=== PATIENT | female | born 1995 | race Caucasian/White ===

== ENCOUNTER 2019-08-28 11:53 | Emergency (ER) | payer OTHER ==
[2019-08-28 12:08] VITALS: TEMP 98.5
[2019-08-28] MEDS ORDERED: SODIUM CHLORIDE 0.9% 500 ML 500 ML IV STA (12:49)
--- NOTE | 2019-08-28 12:53 | ED ---
General Adult HPI - General Chief complaint: Abdominal Pain Stated complaint: Side pain-6wks PG Time Seen by Provider: 08/28/19 12:13 Source: family, RN notes reviewed Mode of arrival: ambulatory Limitations: no limitations - History of Present Illness Initial comments: 23-year-old female currently 6 weeks presents to the emergency department for a chief complaint of left lower quadrant pain last week. Patient states that as a shift in left lower quadrant pain and then she found out she was . States she wants to make sure nothing was wrong with the baby is active causes pain. States that the pain has resolved in the meantime. States she hasn't had pain for several days. Denies any vaginal bleeding. States she is about 6 weeks with LMP of 07/17/2019. Patient does not have an OB. Patient is taking vitamins. Patient has no other complaints at this time including shortness of breath, chest pain,nausea or vomiting, headache, or visual changes. - Related Data Allergies Allergy/AdvReac Type Severity Reaction Status Date / Time No Known Allergies Allergy Verified 08/28/19 12:08 Review of Systems ROS Statement: Those systems with pertinent positive or pertinent negative responses have been documented in the HPI. ROS Other: All systems not noted in ROS Statement are negative. Past Medical History Past Medical History: Asthma History of Any Multi-Drug Resistant Organisms: None Reported Past Surgical History: No Surgical Hx Reported Past Psychological History: No Psychological Hx Reported Smoking Status: Former smoker Past Alcohol Use History: None Reported Past Drug Use History: Marijuana General Exam Limitations: no limitations General appearance: alert, in no apparent distress Head exam: Present: atraumatic, normocephalic, normal inspection Eye exam: Present: normal appearance ENT exam: Present: normal exam, mucous membranes moist Neck exam: Present: normal inspection, full ROM. Absent: tenderness, meningismus, lymphadenopathy Respiratory exam: Present: normal lung sounds bilaterally. Absent: respiratory distress, wheezes, rales, rhonchi, stridor Cardiovascular Exam: Present: regular rate, normal rhythm, normal heart sounds. Absent: systolic murmur, diastolic murmur, rubs, gallop, clicks GI/Abdominal exam: Present: soft, normal bowel sounds. Absent: distended, tenderness (No tenderness including in the lower quadrant.), guarding, rebound, rigid Course Vital Signs 08/28/19 12:05 Temperature 98.5 F Pulse Rate 86 Respiratory 20 Rate Blood Pressure 111/72 O2 Sat by Pulse 99 Oximetry Medical Decision Making - Medical Decision Making Patient has not had any pain in the past few days. No left lower quadrant tenderness. Vitals are stable. CBC and CMP are unremarkable. Urinalysis does show greater than 182 white blood cells however patient is denying any vaginal bleeding whatsoever. Urine will be cultured as there are 12 white blood cells however no bacteria noted. HCG Quant is 1600. Ultrasound findings could reflect a 2 early to visualize intrauterine which is correlated with hCG values. Said he needs and ectopic is not excluded. Patient will repeat hCG in 2 days. She does not yet have an OB, this will be sent to the patient's primary care. She is in the process of finding an OB and is supposed to have an appointment scheduled on but cannot remember who it is. Patient will return here if she has any worsening symptoms or increased pain. - Lab Data Result diagrams: 08/28/19 13:06 08/28/19 13:06 Lab Results 08/28/19 08/28/19 08/28/19 Range/Units 13:06 13:06 13:06 WBC 6.8 (3.8-10.6) k/uL RBC 3.72 L (3.80-5.40) m/uL Hgb 11.7 (11.4-16.0) gm/dL Hct 34.1 (34.0-46.0) % MCV 91.6 (80.0-100.0) fL MCH 31.3 (25.0-35.0) pg MCHC 34.2 (31.0-37.0) g/dL RDW 13.0 (11.5-15.5) % Plt Count 275 (150-450) k/uL Neutrophils % 60 % Lymphocytes % 33 % Monocytes % 5 % Eosinophils % 0 % Basophils % 1 % Neutrophils # 4.0 (1.3-7.7) k/uL Lymphocytes # 2.3 (1.0-4.8) k/uL Monocytes # 0.3 (0-1.0) k/uL Eosinophils # 0.0 (0-0.7) k/uL Basophils # 0.1 (0-0.2) k/uL Sodium 138 (137-145) mmol/L Potassium 4.0 (3.5-5.1) mmol/L Chloride 104 (98-107) mmol/L Carbon Dioxide 23 (22-30) mmol/L Anion Gap 11 mmol/L BUN 10 (7-17) mg/dL Creatinine 0.53 (0.52-1.04) mg/dL Est GFR (CKD-EPI)AfAm >90 (>60 ml/min/1.73 sqM) Est GFR (CKD-EPI)NonAf >90 (>60 ml/min/1.73 sqM) Glucose 82 (74-99) mg/dL Calcium 9.9 (8.4-10.2) mg/dL Total Bilirubin 0.4 (0.2-1.3) mg/dL AST 26 (14-36) U/L ALT 33 (9-52) U/L Alkaline Phosphatase 56 (38-126) U/L Total Protein 7.7 (6.3-8.2) g/dL Albumin 4.8 (3.5-5.0) g/dL HCG, Quant 1607.2 mIU/mL Urine Color Yellow Urine Appearance Clear (Clear) Urine pH 7.0 (5.0-8.0) Ur Specific [place] 1.009 (1.001-1.035) Urine Protein Negative (Negative) Urine Glucose (UA) Negative (Negative) Urine Ketones Negative (Negative) Urine Blood Large H (Negative) Urine Nitrite Negative (Negative) Urine Bilirubin Negative (Negative) Urine Urobilinogen <2.0 (<2.0) mg/dL Ur Leukocyte Esterase Negative (Negative) Urine RBC >182 H (0-5) /hpf Urine WBC 12 H (0-5) /hpf Ur Squamous Epith Cells <1 (0-4) /hpf Urine Mucus Rare H (None) /hpf Disposition Clinical Impression: , Hematuria Disposition: HOME SELF-CARE Condition: Good Instructions (If sedation given, give patient instructions): Abdominal Pain in (ED) Additional Instructions: Please repeat hCG Saturday afternoon. Please follow-up with primary care and [facility] in 1-2 days. Return to the emergency department if you have any worsening symptoms. Is patient prescribed a controlled substance at d/c from ED?: No Referrals: Tish Treviño DO [Primary Care Provider] - 1-2 days Time of Disposition: 14:59
[2019-08-28 13:25] LABS: Basophils # (A) 0.1 k/uL (0-0.2); Basophils % (A) 1 %; Eosinophils % (A) 0 %; HCT 34.1 % (34.0-46.0); HGB 11.7 gm/dL (11.4-16.0); Lymphocytes # (A) 2.3 k/uL (1.0-4.8); Lymphocytes % (A) 33 %; MCH 31.3 pg (25.0-35.0); MCHC 34.2 g/dL (31.0-37.0); MCV 91.6 fL (80.0-100.0); Mean Platelet Volume 7.2; Monocytes # (A) 0.3 k/uL (0-1.0); Monocytes % (A) 5 %; Neutrophils % (A) 60 %; Platelet Count 275 k/uL (150-450); RBC 3.72 m/uL (3.80-5.40); WBC 6.8 k/uL (3.8-10.6)
[2019-08-28 13:34] LABS: ALT 33 U/L (9-52); AST 26 U/L (14-36); African American GFR (CKD) >90 (>60 ml/min/1.73 sqM); Albumin 4.8 g/dL (3.5-5.0); Alkaline Phosphatase 56 U/L (38-126); Anion Gap 11 mmol/L; Blood Urea Nitrogen 10 mg/dL (7-17); Calcium 9.9 mg/dL (8.4-10.2); Carbon Dioxide 23 mmol/L (22-30); Chloride 104 mmol/L (98-107); Glucose 82 mg/dL (74-99); Sodium 138 mmol/L (137-145); Total Bilirubin 0.4 mg/dL (0.2-1.3); Total Protein 7.7 g/dL (6.3-8.2)
[2019-08-28 13:40] LABS: Appearance,Urine Clear (Clear); Bilirubin,Urine Negative (Negative); Blood,Urine Large (Negative); Color,Urine Yellow; Glucose,Urine (UA) Negative (Negative); Ketones,Urine Negative (Negative); Leukocyte Esterase,Urine Negative (Negative); Mucus,Urine Rare /hpf; Nitrite,Urine Negative (Negative); Protein,Urine Negative (Negative); RBC,Urine >182 /hpf (0-5); Specific Gravity,Urine 1.009 (1.001-1.035); Squamous Epithelial Cell,Urine <1 /hpf (0-4); Urobilinogen,Urine <2.0 mg/dL (<2.0); WBC,Urine 12 /hpf (0-5)
[2019-08-28 13:51] LABS: HCG,Quantitative Serum 1607.2 mIU/mL
--- NOTE | 2019-08-28 14:08 | US ---
EXAMINATION TYPE: Transabdominal DATE OF EXAM: 08/28/2019 1:53 PM COMPARISON: NONE CLINICAL HISTORY: LLQ pain with . Left flank pain that started a couple weeks ago and ended 5 days ago, 1 EXAM PERFORMED: Transvaginal (TV) and Transabdominal (TA) EXAM MEASUREMENTS: GESTATIONAL AGE / DATING Physician Established: Not established yet Dates by LMP: (6 weeks/0 days) EDC: 04/22/2020 Dates by First Scan: This is 1st scan Dates by Current Scan for: Probable gestational sac measuring 0.3cm (measuring out of range: too alex y) MATERNAL ANATOMY Uterus: 7.0 x 3.8 x 5.1cm, retroverted Right Ovary: 3.1 x 2.2 x 2.8cm Left Ovary: 2.7 x 1.5 x 1.6cm Post CDS / Adnexa: small amount of free fluid posterior cul de sac Presence of free fluid: yes Presence of corpus luteal cyst: right ovary: 2.2 x 1.8 x 1.6cm Presence of subchorionic bleed: no GESTATION / SURVEY No pole or yolk sac seen at this time MSD: 0.3cm Date of LMP: 07/17/2019 Beta HcG (if available): 1607.2 Heterogeneous uterus with endometrium not well visualized. No gestational sac, yolk sac, pole i s seen. Technologist bergman 4 x 2 x 3 mm oval anechoic lesion possible early gestational sac versus en dometrial cyst. No significant surrounding decidual reaction noted. Small amount free fluid in pelvic cul-de-sac. Both ovaries are seen. There is no suspicious extra ovarian adnexal mass. There is rim hypervascular 2.2 cm right ovarian lesion likely reflecting corpus luteal cyst. IMPRESSION: Findings could reflect too early to visualize intrauterine which would correlat e with beta-hCG values, spontaneous is in differential and ectopic is not excluded . Serial beta hCG and ultrasound follow-up is advised.
[2019-08-28 15:29] VITALS: BP 121/67; PULSE 70; RESP 16
== END 2019-08-28 15:30 | disposition home or self-care (01) ==
LOC: EC 11:53
DX: O99.89 Other specified diseases and conditions complicating pregnancy, childbirth and the puerperium (principal); R31.9 Hematuria, unspecified; R10.32 Left lower quadrant pain; Z3A.01 Less than 8 weeks gestation of pregnancy; Z87.891 Personal history of nicotine dependence
CPT/HCPCS: 36415; 76801; 76817; 80053; 81001; 84702; 85025; 87086; 99284

== ENCOUNTER → 2019-08-30 | Outpatient (CLI) | payer OTHER | END | disposition home or self-care (01) | LOC: LABMAIN 18:43 | PROVIDERS: ATTEND Physician Assistant Medical | DX: O99.89 Other specified diseases and conditions complicating pregnancy, childbirth and the puerperium (principal); R10.32 Left lower quadrant pain; Z3A.00 Weeks of gestation of pregnancy not specified | CPT/HCPCS: 36415; 84702 ==

== ENCOUNTER 2019-09-13 19:11 | Emergency (ER) | payer OTHER ==
[2019-09-13 19:31] VITALS: BP 113/54; PULSE 89; RESP 20; TEMP 98.4
[2019-09-13 20:04] LABS: Amorphous Sediment,Urine Occasional /hpf; Appearance,Urine Cloudy (Clear); Bilirubin,Urine Negative (Negative); Blood,Urine Moderate (Negative); Color,Urine Yellow; Glucose,Urine (UA) Negative (Negative); Ketones,Urine Negative (Negative); Leukocyte Esterase,Urine Negative (Negative); Mucus,Urine Rare /hpf; Nitrite,Urine Negative (Negative); Protein,Urine Trace (Negative); RBC,Urine >182 /hpf (0-5); Specific Gravity,Urine 1.018 (1.001-1.035); Urobilinogen,Urine <2.0 mg/dL (<2.0)
--- NOTE | 2019-09-13 20:31 | ED ---
Female Urogenital HPI - General Chief complaint: Urogenital Stated complaint: 6wks preg, UTI Time Seen by Provider: 09/13/19 20:15 Source: patient Mode of arrival: ambulatory Limitations: no limitations - History of Present Illness Initial comments: Patient is a 23-year-old female presenting to the emergency department complaints of a possible UTI 2 days. Patient is currently 6 weeks without complications thus far, first . Patient states she has been having an increase in frequency, urge and burning with urination for the past 2 days. Patient has history of UTIs as well as kidney infections. Patient denies fever, chills, back pain, abdominal pain. Denies vaginal bleeding or discharge. Patient has no other complaints at this time. Upon arrival to ER, vital signs are stable. - Related Data Previous Rx's Medication Instructions Recorded Cephalexin [Keflex] 500 mg PO BID 5 Days #10 cap 09/13/19 Allergies Allergy/AdvReac Type Severity Reaction Status Date / Time bee venom protein (honey bee) Allergy Rapid Verified 09/13/19 19:32 Heart Rate Review of Systems ROS Statement: Those systems with pertinent positive or pertinent negative responses have been documented in the HPI. ROS Other: All systems not noted in ROS Statement are negative. Past Medical History Past Medical History: Asthma History of Any Multi-Drug Resistant Organisms: None Reported Past Surgical History: No Surgical Hx Reported Past Psychological History: No Psychological Hx Reported Smoking Status: Former smoker Past Alcohol Use History: None Reported Past Drug Use History: Marijuana General Exam - General Exam Comments Initial Comments: GENERAL: Well-appearing, well-nourished and in no acute distress. HEAD: Atraumatic, normocephalic. EYES: Pupils equal round and reactive to light, extraocular movements intact, sclera anicteric, conjunctiva are normal. ENT: Moist mucous membranes. LUNGS: Breath sounds clear to auscultation bilaterally and equal. No wheezes rales or rhonchi. HEART: Regular rate and rhythm without murmurs, rubs or gallops. ABDOMEN: Soft, nontender, normoactive bowel sounds. No guarding, no rebound. No masses appreciated. : Deferred EXTREMITIES: Normal range of motion, no pitting or edema. No clubbing or cyanosis. PSYCH: Normal mood, normal affect. SKIN: Warm, Dry, normal turgor, no rashes or lesions noted. Limitations: no limitations Course Vital Signs 09/13/19 19:29 Temperature 98.4 F Pulse Rate 89 Respiratory 20 Rate Blood Pressure 113/54 O2 Sat by Pulse 100 Oximetry Medical Decision Making - Medical Decision Making A 23-year-old female presenting with UTI-type symptoms 2 days. Patient is currently 6 weeks . First . Vital signs are stable, afebrile, no abdominal pain. UA does show hematuria, only 2 wbc's. Given patient's history and current symptoms as well as , patient will be started on Keflex for possible UTI. Patient's urine will be cultured and is pending at t his time. Patient is in agreement with this plan of care. Patient will follow up with her PLANT QUALITY MANAGER next week. Patient is stable for discharge at this time. Return parameters were discussed with the patient and she verbalized understanding. - Lab Data Lab Results 09/13/19 Range/Units 19:50 Urine Color Yellow Urine Appearance Cloudy H (Clear) Urine pH 7.0 (5.0-8.0) Ur Specific [place] 1.018 (1.001-1.035) Urine Protein Trace H (Negative) Urine Glucose (UA) Negative (Negative) Urine Ketones Negative (Negative) Urine Blood Moderate H (Negative) Urine Nitrite Negative (Negative) Urine Bilirubin Negative (Negative) Urine Urobilinogen <2.0 (<2.0) mg/dL Ur Leukocyte Esterase Negative (Negative) Urine RBC >182 H (0-5) /hpf Urine WBC 2 (0-5) /hpf Amorphous Sediment Occasional H (None) /hpf Urine Mucus Rare H (None) /hpf Disposition Clinical Impression: , Urinary tract infection, Hematuria Disposition: HOME SELF-CARE Condition: Stable Instructions (If sedation given, give patient instructions): Urinary Tract Infection in Women (ED) Additional Instructions: Please return to the Emergency Department if symptoms worsen or any other concerns. Follow-up with PLANT QUALITY MANAGER as needed if symptoms persist. Take antibiotics as prescribed. Prescriptions: Cephalexin [Keflex] 500 mg PO BID 5 Days #10 cap Is patient prescribed a controlled substance at d/c from ED?: No Referrals: Tish Treviño DO [Primary Care Provider] - 1-2 days
[2019-09-13] MEDS ORDERED: CEPHALEXIN 500 MG CAP PO STA (20:34)
[2019-09-13] MEDS ORDERED: PHENAZOPYRIDINE 200 MG TAB PO STA (20:34)
== END 2019-09-13 20:42 | disposition home or self-care (01) ==
LOC: EC 19:11
DX: O23.41 Unspecified infection of urinary tract in pregnancy, first trimester (principal); Z87.891 Personal history of nicotine dependence; Z91.030 Bee allergy status; Z3A.01 Less than 8 weeks gestation of pregnancy
CPT/HCPCS: 81001; 87086; 99284

== ENCOUNTER 2019-09-14 20:21 | Emergency (ER) | payer OTHER ==
[2019-09-14 21:00] LABS: Bacteria,Urine Occasional /hpf; Hyaline Casts,Urine 1 /lpf (0-2); Mucus,Urine Rare /hpf; RBC,Urine 11 /hpf (0-5); Squamous Epithelial Cell,Urine 1 /hpf (0-4); WBC,Urine 2 /hpf (0-5)
--- NOTE | 2019-09-14 21:25 | ED ---
General Adult HPI - General Chief complaint: Recheck/Abnormal Lab/Rx Stated complaint: Recheck Urogenital Time Seen by Provider: 09/14/19 20:32 Source: patient Mode of arrival: ambulatory Limitations: no limitations - History of Present Illness Initial comments: 23-year-old female patient presents to the emergency department today for evaluation of dysuria. The patient states she's had symptoms for the last 3-4 days. States she was seen and evaluated here yesterday and was diagnosed with urinary tract infection given a antibiotic. Patient states she did take 2 doses of the antibiotic but has not had any improvement of symptoms. Patient states that her dysuria is worse today. She denies any abdominal or back pain. States she is experiencing a pinching sensation to the right flank region for the last couple of weeks. She does have history of kidney stones but states this pain is different. She denies any abnormal vaginal bleeding or discharge. She is 6 weeks , . He has had a ultrasound confirming intrauterine . She has no concerns for sexually transmitted infections. Patient denies any recent rash, fever, chills, shortness breath, chest pain, nausea, vomiting, diarrhea, constipation, numbness, tingling, dizziness, weakness, headache, visual changes, or any other complaints. - Related Data Previous Rx's Medication Instructions Recorded Cephalexin [Keflex] 500 mg PO BID 5 Days #10 cap 09/13/19 Allergies Allergy/AdvReac Type Severity Reaction Status Date / Time bee venom protein (honey bee) Allergy Rapid Verified 09/14/19 21:28 Heart Rate Review of Systems ROS Statement: Those systems with pertinent positive or pertinent negative responses have been documented in the HPI. ROS Other: All systems not noted in ROS Statement are negative. Past Medical History Past Medical History: Asthma History of Any Multi-Drug Resistant Organisms: None Reported Past Surgical History: No Surgical Hx Reported Past Psychological History: No Psychological Hx Reported Smoking Status: Former smoker Past Alcohol Use History: None Reported Past Drug Use History: Marijuana General Exam Limitations: no limitations General appearance: alert, in no apparent distress, other (Physical well- developed, well-nourished adult female patient in no acute distress. Vital signs upon presentation are temperature 98.4F, pulse 98, respirations 18, blood pressure 97/43, pulse ox 98% on room air.) Eye exam: Present: normal appearance, PERRL, EOMI. Absent: scleral icterus, conjunctival injection, periorbital swelling ENT exam: Present: normal exam, normal oropharynx, mucous membranes moist Respiratory exam: Present: normal lung sounds bilaterally. Absent: respiratory distress, wheezes, rales, rhonchi, stridor Cardiovascular Exam: Present: regular rate, normal rhythm, normal heart sounds. Absent: systolic murmur, diastolic murmur, rubs, gallop, clicks GI/Abdominal exam: Present: soft, normal bowel sounds. Absent: distended, tenderness, guarding, rebound, rigid Back exam: Present: normal inspection. Absent: CVA tenderness (R), CVA tenderness (L) Neurological exam: Present: alert, oriented X3, CN II-XII intact Psychiatric exam: Present: normal affect, normal mood Skin exam: Present: warm, dry, intact, normal color. Absent: rash Course Vital Signs 09/14/19 09/14/19 20:25 21:29 Temperature 98.4 F 98 F Pulse Rate 98 53 L Respiratory 18 16 Rate Blood Pressure 97/43 95/50 O2 Sat by Pulse 98 97 Oximetry Medical Decision Making - Medical Decision Making 23-year-old female patient presents to the emergency department today for evaluation of dysuria. Physical examination is unremarkable. Abdomen is soft and nontender. Urinalysis was performed, showed evidence for hematuria but no clear evidence for infection. We did discuss the possibility of vaginal bleeding, patient states she is not concerned about this and declines pelvic examination. We discussed use of Pyridium for her symptoms, she states she did try this last evening it did not work, she declined this medication today. She is instructed to increase fluids. Rest. Follow-up with her SOCIAL WORK CASE MANAGER for recheck as soon as possible. Return parameters discussed in detail. She verbalizes understanding and agrees with this plan. - Lab Data Lab Results 09/14/19 Range/Units 20:45 Urine Color Dark Brown Urine Appearance Turbid H (Clear) Urine pH 6.0 (5.0-8.0) Ur Specific [place] 1.025 (1.001-1.035) Urine Protein 1+ (Negative) Urine Glucose (UA) Negative (Negative) Urine Ketones Negative (Negative) Urine Blood Small (Negative) Urine Nitrite Positive H (Negative) Urine Bilirubin 1+ H (Negative) Urine Urobilinogen 4.0 (<2.0) mg/dL Ur Leukocyte Esterase Negative (Negative) Urine RBC 11 H (0-5) /hpf Urine WBC 2 (0-5) /hpf Ur Squamous Epith Cells 1 (0-4) /hpf Urine Bacteria Occasional H (None) /hpf Hyaline Casts 1 (0-2) /lpf Urine Mucus Rare H (None) /hpf Disposition Clinical Impression: Hematuria, Dysuria Disposition: HOME SELF-CARE Condition: Good Instructions (If sedation given, give patient instructions): Hematuria (ED), Dysuria (ED) Additional Instructions: Increase fluids. Rest. Follow-up with your primary care physician your SOCIAL WORK CASE MANAGER for recheck as soon as possible. Return to the emergency department immediately for any new, worsening, or concerning symptoms. Is patient prescribed a controlled substance at d/c from ED?: No Referrals: Tish Treviño DO [Primary Care Provider] - 1-2 days Time of Disposition: 21:25
[2019-09-14 21:31] VITALS: BP 95/50; PULSE 53; RESP 16; TEMP 98
[2019-09-14 21:38] LABS: Appearance,Urine Turbid (Clear); Color,Urine Dark Brown; Specific Gravity,Urine 1.025 (1.001-1.035)
[2019-09-14 21:39] LABS: Bilirubin,Urine 1+ (Negative); Blood,Urine Small (Negative); Glucose,Urine (UA) Negative (Negative); Ketones,Urine Negative (Negative); Protein,Urine 1+ (Negative)
[2019-09-14 21:40] LABS: Leukocyte Esterase,Urine Negative (Negative); Nitrite,Urine Positive (Negative)
== END 2019-09-14 21:33 | disposition home or self-care (01) ==
LOC: EC 20:21
DX: O99.89 Other specified diseases and conditions complicating pregnancy, childbirth and the puerperium (principal); R31.9 Hematuria, unspecified; R30.0 Dysuria; Z87.891 Personal history of nicotine dependence; Z91.030 Bee allergy status; Z87.440 Personal history of urinary (tract) infections; Z87.442 Personal history of urinary calculi; Z3A.01 Less than 8 weeks gestation of pregnancy; Z53.20 Procedure and treatment not carried out because of patient's decision for unspecified reasons
CPT/HCPCS: 81001; 99284

== ENCOUNTER 2019-11-04 08:21 | Emergency (ER) | payer OTHER ==
--- NOTE | 2019-11-04 08:46 | ED ---
Female Urogenital HPI - General Chief complaint: Vaginal Bleeding Stated complaint: 14wks preg, bleeding Time Seen by Provider: 11/04/19 08:27 Source: patient, RN notes reviewed, old records reviewed Mode of arrival: ambulatory Limitations: no limitations - History of Present Illness Initial comments: Patient is a 24-year-old female, proximally 14 weeks . She follows with Dr. Wallace. She states that she started to have vaginal bleeding today when she woke up. Patient reports that she did go through one pad prior to arrival. Patient states that she this is her first . She denies any abdominal pain or cramping at this time. Patient states that she's had no recent trauma or intercourse to start the onset of bleeding. - Related Data Previous Rx's Medication Instructions Recorded Cephalexin [Keflex] 500 mg PO BID 5 Days #10 cap 09/13/19 Allergies Allergy/AdvReac Type Severity Reaction Status Date / Time bee venom protein (honey bee) Allergy Rapid Verified 09/14/19 21:28 Heart Rate Review of Systems ROS Statement: Those systems with pertinent positive or pertinent negative responses have been documented in the HPI. ROS Other: All systems not noted in ROS Statement are negative. Past Medical History Past Medical History: Asthma History of Any Multi-Drug Resistant Organisms: None Reported Past Surgical History: No Surgical Hx Reported Past Psychological History: No Psychological Hx Reported Smoking Status: Former smoker Past Alcohol Use History: None Reported Past Drug Use History: Marijuana General Exam - General Exam Comments Initial Comments: alert and oriented 24-year-old female. No distress. Limitations: no limitations General appearance: alert Head exam: Present: atraumatic, normocephalic, normal inspection Eye exam: Present: normal appearance, PERRL, EOMI. Absent: scleral icterus, co njunctival injection, periorbital swelling ENT exam: Present: normal exam, mucous membranes moist Neck exam: Present: normal inspection. Absent: tenderness, meningismus, lymphadenopathy Respiratory exam: Present: normal lung sounds bilaterally. Absent: respiratory distress, wheezes, rales, rhonchi, stridor Cardiovascular Exam: Present: regular rate, normal rhythm, normal heart sounds. Absent: systolic murmur, diastolic murmur, rubs, gallop, clicks GI/Abdominal exam: Present: soft, normal bowel sounds. Absent: distended, tenderness, guarding, rebound, rigid External exam: Present: normal external exam Speculum exam: Present: vaginal bleeding (Patient has vaginal bleeding. Cervix appears closed. Mucous noted around the cervical os.). Absent: normal speculum exam Extremities exam: Present: normal inspection, full ROM, normal capillary refill. Absent: tenderness, pedal edema, joint swelling, calf tenderness Back exam: Present: normal inspection Neurological exam: Present: alert, oriented X3, CN II-XII intact Course Vital Signs 11/04/19 08:24 Temperature 98.1 F Pulse Rate 85 Respiratory 19 Rate Blood Pressure 112/70 O2 Sat by Pulse 100 Oximetry Medical Decision Making - Medical Decision Making this patient's a pleasant 24-year-old female. She is a . Proximally 14 weeks . Last [facility]. At this time patient's urinalysis is positive for blood. Pelvic exam did show bright red blood in vaginal vault. She had no adnexal tenderness. Denies any abdominal pain or cramping. Ultrasound at this time shows evidence of a subchorionic bleed. Viable intrauterine . Heart rate is 1 59 bpm. At this time Patient was informed that she needs to pelvic rest and she can follow-up with her [facility]. She is Rh+. Discussed if she had a further severe bleeding or cramping or pain that she is welcome to return to the ER for reevaluation. - Lab Data Result diagrams: 11/04/19 08:45 11/04/19 08:45 Lab Results 11/04/19 11/04/19 11/04/19 Range/Units 07:15 08:45 08:45 WBC 6.1 (3.8-10.6) k/uL RBC 3.70 L (3.80-5.40) m/uL Hgb 11.6 (11.4-16.0) gm/dL Hct 33.9 L (34.0-46.0) % MCV 91.7 (80.0-100.0) fL MCH 31.3 (25.0-35.0) pg MCHC 34.1 (31.0-37.0) g/dL RDW 12.6 (11.5-15.5) % Plt Count 224 (150-450) k/uL Neutrophils % 69 % Lymphocytes % 24 % Monocytes % 5 % Eosinophils % 1 % Basophils % 1 % Neutrophils # 4.2 (1.3-7.7) k/uL Lymphocytes # 1.5 (1.0-4.8) k/uL Monocytes # 0.3 (0-1.0) k/uL Eosinophils # 0.1 (0-0.7) k/uL Basophils # 0.0 (0-0.2) k/uL PT (9.0-12.0) sec INR (<1.2) APTT (22.0-30.0) sec Sodium (137-145) mmol/L Potassium (3.5-5.1) mmol/L Chloride (98-107) mmol/L Carbon Dioxide (22-30) mmol/L Anion Gap mmol/L BUN (7-17) mg/dL Creatinine (0.52-1.04) mg/dL Est GFR (CKD-EPI)AfAm (>60 ml/min/1.73 sqM) Est GFR (CKD-EPI)NonAf (>60 ml/min/1.73 sqM) Glucose (74-99) mg/dL Calcium (8.4-10.2) mg/dL Total Bilirubin (0.2-1.3) mg/dL AST (14-36) U/L ALT (4-34) U/L Alkaline Phosphatase (38-126) U/L Total Protein (6.3-8.2) g/dL Albumin (3.5-5.0) g/dL Urine Color Urine Appearance (Clear) Urine pH (5.0-8.0) Ur Specific [place] (1.001-1.035) Urine Protein (Negative) Urine Glucose (UA) (Negative) Urine Ketones (Negative) Urine Blood (Negative) Urine Nitrite (Negative) Urine Bilirubin (Negative) Urine Urobilinogen (<2.0) mg/dL Ur Leukocyte Esterase (Negative) Urine RBC (0-5) /hpf Urine WBC (0-5) /hpf Ur Squamous Epith Cells (0-4) /hpf Urine Bacteria (None) /hpf Urine Mucus (None) /hpf Trichomonas Ag (Rapid) Negative (Negative) Blood Type A Positive Blood Type Recheck No Previous Record Bld Type Recheck Status ABR ONLY 11/04/19 11/04/19 11/04/19 Range/Units 08:45 08:45 08:45 WBC (3.8-10.6) k/uL RBC (3.80-5.40) m/uL Hgb (11.4-16.0) gm/dL Hct (34.0-46.0) % MCV (80.0-100.0) fL MCH (25.0-35.0) pg MCHC (31.0-37.0) g/dL RDW (11.5-15.5) % Plt Count (150-450) k/uL Neutrophils % % Lymphocytes % % Monocytes % % Eosinophils % % Basophils % % Neutrophils # (1.3-7.7) k/uL Lymphocytes # (1.0-4.8) k/uL Monocytes # (0-1.0) k/uL Eosinophils # (0-0.7) k/uL Basophils # (0-0.2) k/uL PT 9.6 (9.0-12.0) sec INR 0.9 (<1.2) APTT 22.3 (22.0-30.0) sec Sodium 138 (137-145) mmol/L Potassium 4.4 (3.5-5.1) mmol/L Chloride 104 (98-107) mmol/L Carbon Dioxide 26 (22-30) mmol/L Anion Gap 8 mmol/L BUN 6 L (7-17) mg/dL Creatinine 0.42 L (0.52-1.04) mg/dL Est GFR (CKD-EPI)AfAm >90 (>60 ml/min/1.73 sqM) Est GFR (CKD-EPI)NonAf >90 (>60 ml/min/1.73 sqM) Glucose 77 (74-99) mg/dL Calcium 9.4 (8.4-10.2) mg/dL Total Bilirubin 0.4 (0.2-1.3) mg/dL AST 91 H (14-36) U/L ALT 179 H (4-34) U/L Alkaline Phosphatase 33 L (38-126) U/L Total Protein 6.6 (6.3-8.2) g/dL Albumin 4.0 (3.5-5.0) g/dL Urine Color Yellow Urine Appearance Cloudy H (Clear) Urine pH 8.0 (5.0-8.0) Ur Specific [place] 1.011 (1.001-1.035) Urine Protein Negative (Negative) Urine Glucose (UA) Negative (Negative) Urine Ketones Negative (Negative) Urine Blood Large H (Negative) Urine Nitrite Negative (Negative) Urine Bilirubin Negative (Negative) Urine Urobilinogen <2.0 (<2.0) mg/dL Ur Leukocyte Esterase Negative (Negative) Urine RBC >182 H (0-5) /hpf Urine WBC 4 (0-5) /hpf Ur Squamous Epith Cells <1 (0-4) /hpf Urine Bacteria Rare H (None) /hpf Urine Mucus Rare H (None) /hpf Trichomonas Ag (Rapid) (Negative) Blood Type Blood Type Recheck Bld Type Recheck Status - Radiology Data Radiology results: report reviewed Single live intrauterine gestation measured at 13 weeks and 2 days. Gestation oncrown-rumplength. Cardiac activity is 159. Complex hypoechoic area anterior to this gestational sac measuring 5.8 x 2.2cm. This may be a subchorionic hemorrhage. Placenta is not clearly delineated at this time. Disposition Clinical Impression: Subchorionic bleed Disposition: HOME SELF-CARE Condition: Good Instructions (If sedation given, give patient instructions): Dysmenorrhea (ED) Additional Instructions: Patient should've pelvic rest, no intercourse or heavy lifting. Follow-up with your [facility]. Please return to the emergency room if your symptoms increase or worsen or for any other concerns. Is patient prescribed a controlled substance at d/c from ED?: No Referrals: Tish Treviño DO [Primary Care Provider] - 1-2 days Fiona Wallace DO [Doctor of Osteopathic Medicine] - 1-2 days Time of Disposition: 10:46
[2019-11-04 09:22] LABS: Basophils % (A) 1 %; Eosinophils # (A) 0.1 k/uL (0-0.7); Eosinophils % (A) 1 %; HCT 33.9 % (34.0-46.0); HGB 11.6 gm/dL (11.4-16.0); Lymphocytes # (A) 1.5 k/uL (1.0-4.8); Lymphocytes % (A) 24 %; MCH 31.3 pg (25.0-35.0); MCHC 34.1 g/dL (31.0-37.0); MCV 91.7 fL (80.0-100.0); Mean Platelet Volume 8.5; Monocytes # (A) 0.3 k/uL (0-1.0); Monocytes % (A) 5 %; Neutrophils # (A) 4.2 k/uL (1.3-7.7); Neutrophils % (A) 69 %; Platelet Count 224 k/uL (150-450); RDW 12.6 % (11.5-15.5); WBC 6.1 k/uL (3.8-10.6)
[2019-11-04 09:26] LABS: ALT 179 U/L (4-34); AST 91 U/L (14-36); African American GFR (CKD) >90 (>60 ml/min/1.73 sqM); Alkaline Phosphatase 33 U/L (38-126); Anion Gap 8 mmol/L; Blood Urea Nitrogen 6 mg/dL (7-17); Calcium 9.4 mg/dL (8.4-10.2); Carbon Dioxide 26 mmol/L (22-30); Chloride 104 mmol/L (98-107); Glucose 77 mg/dL (74-99); Non-African American GFR(CKD) >90 (>60 ml/min/1.73 sqM); Potassium 4.4 mmol/L (3.5-5.1); Sodium 138 mmol/L (137-145); Total Bilirubin 0.4 mg/dL (0.2-1.3); Total Protein 6.6 g/dL (6.3-8.2)
[2019-11-04 09:31] LABS: INR 0.9 (<1.2); Partial Thromboplastin Time 22.3 sec (22.0-30.0); Prothrombin Time 9.6 sec (9.0-12.0)
[2019-11-04 09:41] LABS: Appearance,Urine Cloudy (Clear); Bacteria,Urine Rare /hpf; Bilirubin,Urine Negative (Negative); Blood,Urine Large (Negative); Color,Urine Yellow; Glucose,Urine (UA) Negative (Negative); Ketones,Urine Negative (Negative); Leukocyte Esterase,Urine Negative (Negative); Mucus,Urine Rare /hpf; Nitrite,Urine Negative (Negative); Protein,Urine Negative (Negative); RBC,Urine >182 /hpf (0-5); Specific Gravity,Urine 1.011 (1.001-1.035); Squamous Epithelial Cell,Urine <1 /hpf (0-4); Urobilinogen,Urine <2.0 mg/dL (<2.0); WBC,Urine 4 /hpf (0-5)
--- NOTE | 2019-11-04 09:47 | US ---
EXAMINATION TYPE: Transabdominal DATE OF EXAM: 11/04/2019 9:33 AM COMPARISON: NONE CLINICAL HISTORY: pain. vaginal bleeding EXAM PERFORMED: Transabdominal (TA) EXAM MEASUREMENTS: GESTATIONAL AGE / DATING Physician Established: (14 weeks/0 days) EDC: 05/04/20 Dates by LMP: unknown Dates by First Scan: too early to date on prior exam Dates by Current Scan for: (13 weeks/2 days) EDC: 05/09/20 MATERNAL ANATOMY Uterus: 13.1 x 7.8 x 11.1cm Right Ovary: 3.4 x 2.3 x 2.3cm Left Ovary: 3.4 x 2.8 x 2.2cm Post CDS / Adnexa: wnl Presence of free fluid: no Presence of corpus luteal cyst: yes, right ovary = 2.1 x 2.1 x 2.1cm Presence of subchorionic bleed: complex hypoechoic area anterior to GS = 5.8cm GESTATION / SURVEY CRL: 7.1cm (13 weeks/2 days) Yolk Sac (normal less than 6mm): not seen Heart Rate: 159 bpm Rhythm: Normal IUP: Viable IUP Date of LMP: unknown Single viable IUP 13wks/2days with JORDAN of 05/09/20. corpus luteum right ovary. probable subchorionic bleed anterior to GS IMPRESSION: 1. Single intrauterine gestation estimated at 13 weeks 2 days gestation based on crown-rump length. C ardiac activity measures 159 bpm. 2. Complex hypoechoic area anterior to the gestational sac measuring 5.8 x 2.2 cm may be a subchorion ic hemorrhage. Placenta is not clearly delineated at this time.
[2019-11-04 10:57] VITALS: BP 101/61; PULSE 80; RESP 18; TEMP 97.8
[2019-11-05 15:03] LABS: N. gonorrhoeae,PCR Negative (Neg,Equiv); Neisseria Source Genital
[2019-11-05 15:14] LABS: C. trachomatis,PCR Negative (Neg,Equiv); Chlamydia trachomatis Source Genital
== END 2019-11-04 10:57 | disposition home or self-care (01) ==
LOC: EC 08:21
DX: O20.8 Other hemorrhage in early pregnancy (principal); Z67.10 Type A blood, Rh positive; Z87.891 Personal history of nicotine dependence; Z91.030 Bee allergy status; Z3A.13 13 weeks gestation of pregnancy
CPT/HCPCS: 36415; 76801; 80053; 81001; 85025; 85610; 85730; 86900; 86901; 87070; 87491; 87591; 87808; 99284

== ENCOUNTER 2019-11-16 11:22 | Emergency (ER) | payer OTHER ==
[2019-11-16 12:43] VITALS: RESP 18; TEMP 98.3
[2019-11-16] MEDS ORDERED: SODIUM CHLORIDE 0.9% 1,000 ML IV STA (13:08)
[2019-11-16] MEDS ORDERED: METOCLOPRAMIDE 5 MG/ML 2 ML VIAL IVP STA (13:08)
--- NOTE | 2019-11-16 13:19 | ED ---
General Adult HPI - General Chief complaint: Nausea/Vomiting/Diarrhea Stated complaint: dehydration-15 wks preg Time Seen by Provider: 11/16/19 12:56 Source: patient Mode of arrival: ambulatory - History of Present Illness Initial comments: Dictation was produced using [employer] dictation software. please excuse any grammatical, word or spelling errors. Chief Complaint: 24-year-old female presents with nausea vomiting diarrhea. History of Present Illness: The 24-year-old female she has no significant comorbidities. She she reports that she is 15 weeks . She said over the weekend she's been having nausea vomiting diarrhea. She is not sure if there is any overt sick contacts. States that her emesis is been clear patient is feeling nauseous with poor oral intake. Her gold tooler is Dr. Wallace. She is instructed to come to the emergency department for concerns of dehydration. Patient states she's also been having diarrhea. She states that she's been having difficulty eating due to significant nausea postprandially. Denies any constitutional symptoms. She does report some mild pelvic cramping but denies any vaginal discharge or vaginal bleeding. She reports that she had a subchorionic hemorrhage and is currently on pelvic rest. The ROS documented in this emergency department record has been reviewed and confirmed by me. Those systems with pertinent positive or negative responses have been documented in the HPI. All other systems are other negative and/or noncontributory. PHYSICAL EXAM: General Impression: Alert and oriented x3, not in acute distress HEENT: Normocephalic atraumatic, extra-ocular movements intact, pupils equal and reactive to light bilaterally, dry mucous membranes Cardiovascular: Heart regular rate and rhythm, S1&S2 audible, no murmurs, rubs or gallops Chest: Lungs clear to auscultation bilaterally, no rhonchi, no wheeze, no rales Abdomen: Bowel sounds present, abdomen soft, non-tender, non-distended, no organomegaly Musculoskeletal: Pulses present and equal in all extremities, no peripheral rubén ma Motor: no focal deficits noted Neurological: CN II-XII grossly intact, no focal motor or sensory deficits noted Skin: Intact with no visualized rashes Psych: Normal affect and mood ED course: 24-year-old female presents with clinical presentation consistent with gastroenteritis. Vital signs upon arrival are within acceptable limits. Laboratory evaluation obtained. Mild leukocytosis of 11.4 likely secondary to . CBC is otherwise unremarkable. Metabolic panel shows mild metabolic acidosis likely secondary to dehydration. Urinalysis shows 2+ ketones. Patient tolerating by mouth I bedside patient is given 1 L of fluids. ultrasound was obtained showing a 7.4 cm subchorionic hemorrhage and isocoric 10.0 cm region noted by water filtration technician with multiple debris concerning for retroplacental hemorrhage versus early placental abruption. Discussed patient case with Dr. Wallace understands that patient has similar findings seen on an ultrasound recently. Patient denies any bleeding at this time. She does not complain of significant pelvic pain. Single live intrauterine was observed with heart rate of 171. Dr. Wallace reports the patient is given referral to maternal- medicine. Patient was not able to make appointment because of her gastroenteritis symptoms today. Dr. Wallace recommends that patient be discharged follow-up with her office as soon as possible for outpatient management of ultrasound findings. Findings were discussed with patient. She is agreeable to discharge however she is urged to return to the emergency Department immediately should she began developing vaginal bleeding or pelvic symptoms. Patient understandable and agreeable to plan. Patient prescription for dictation was for nausea control. She is charted on the significance of adequate hydration. - Related Data Previous Rx's Medication Instructions Recorded Cephalexin [Keflex] 500 mg PO BID 5 Days #10 cap 09/13/19 Doxylamine/Pyridoxine HCl (B6) 1 each PO TID PRN #20 tablet. 11/16/19 [Eloise Broussard 10-10 mg Tablet] Allergies Allergy/AdvReac Type Severity Reaction Status Date / Time bee venom protein (honey bee) Allergy Rapid Verified 11/16/19 12:43 Heart Rate Review of Systems ROS Statement: Those systems with pertinent positive or pertinent negative responses have been documented in the HPI. ROS Other: All systems not noted in ROS Statement are negative. Past Medical History Past Medical History: Asthma History of Any Multi-Drug Resistant Organisms: None Reported Past Surgical History: No Surgical Hx Reported Past Psychological History: No Psychological Hx Reported Smoking Status: Former smoker Past Alcohol Use History: None Reported Past Drug Use History: None Reported Course Vital Signs 11/16/19 12:40 Temperature 98.3 F Pulse Rate 88 Respiratory 18 Rate Blood Pressure 101/67 O2 Sat by Pulse 100 Oximetry Medical Decision Making - Lab Data Result diagrams: 11/16/19 14:19 11/16/19 13:29 Lab Results 11/16/19 11/16/19 11/16/19 Range/Units 13:05 13:29 14:19 WBC 11.4 H (3.8-10.6) k/uL RBC 3.31 L (3.80-5.40) m/uL Hgb 10.3 L (11.4-16.0) gm/dL Hct 29.8 L (34.0-46.0) % MCV 90.1 (80.0-100.0) fL MCH 31.2 (25.0-35.0) pg MCHC 34.6 (31.0-37.0) g/dL RDW 13.0 (11.5-15.5) % Plt Count 216 (150-450) k/uL Neutrophils % 81 % Lymphocytes % 13 % Monocytes % 5 % Eosinophils % 1 % Basophils % 0 % Neutrophils # 9.2 H (1.3-7.7) k/uL Lymphocytes # 1.4 (1.0-4.8) k/uL Monocytes # 0.5 (0-1.0) k/uL Eosinophils # 0.1 (0-0.7) k/uL Basophils # 0.0 (0-0.2) k/uL Sodium 137 (137-145) mmol/L Potassium 4.2 (3.5-5.1) mmol/L Chloride 105 (98-107) mmol/L Carbon Dioxide 20 L (22-30) mmol/L Anion Gap 12 mmol/L BUN 8 (7-17) mg/dL Creatinine 0.35 L (0.52-1.04) mg/dL Est GFR (CKD-EPI)AfAm >90 (>60 ml/min/1.73 sqM) Est GFR (CKD-EPI)NonAf >90 (>60 ml/min/1.73 sqM) Glucose 70 L (74-99) mg/dL Calcium 9.4 (8.4-10.2) mg/dL Magnesium 1.8 (1.6-2.3) mg/dL Urine Color Yellow Urine Appearance Cloudy H (Clear) Urine pH 6.0 (5.0-8.0) Ur Specific [place] 1.024 (1.001-1.035) Urine Protein Trace H (Negative) Urine Glucose (UA) Negative (Negative) Urine Ketones 2+ H (Negative) Urine Blood Negative (Negative) Urine Nitrite Negative (Negative) Urine Bilirubin Negative (Negative) Urine Urobilinogen <2.0 (<2.0) mg/dL Ur Leukocyte Esterase Negative (Negative) Urine RBC 4 (0-5) /hpf Urine WBC 4 (0-5) /hpf Ur Squamous Epith Cells 1 (0-4) /hpf Urine Bacteria Few H (None) /hpf Urine Mucus Many H (None) /hpf Disposition Clinical Impression: Gastroenteritis, Subchorionic bleed Disposition: HOME SELF-CARE Condition: Good Instructions (If sedation given, give patient instructions): Acute Nausea and Vomiting (ED), Subchorionic Hemorrhage (ED) Prescriptions: Doxylamine/Pyridoxine HCl (B6) [Eloise Broussard 10-10 mg Tablet] 1 each PO TID PRN #20 tablet. PRN Reason: Nausea Is patient prescribed a controlled substance at d/c from ED?: No Referrals: Fiona Wallace DO [Doctor of Osteopathic Medicine] - 1-2 days Time of Disposition: 15:15
[2019-11-16 13:41] LABS: Appearance,Urine Cloudy (Clear); Bacteria,Urine Few /hpf; Bilirubin,Urine Negative (Negative); Blood,Urine Negative (Negative); Color,Urine Yellow; Glucose,Urine (UA) Negative (Negative); Ketones,Urine 2+ (Negative); Leukocyte Esterase,Urine Negative (Negative); Mucus,Urine Many /hpf; Nitrite,Urine Negative (Negative); Protein,Urine Trace (Negative); RBC,Urine 4 /hpf (0-5); Specific Gravity,Urine 1.024 (1.001-1.035); Squamous Epithelial Cell,Urine 1 /hpf (0-4); Urobilinogen,Urine <2.0 mg/dL (<2.0); WBC,Urine 4 /hpf (0-5)
[2019-11-16 14:07] LABS: African American GFR (CKD) >90 (>60 ml/min/1.73 sqM); Anion Gap 12 mmol/L; Blood Urea Nitrogen 8 mg/dL (7-17); Calcium 9.4 mg/dL (8.4-10.2); Carbon Dioxide 20 mmol/L (22-30); Chloride 105 mmol/L (98-107); Glucose 70 mg/dL (74-99); Magnesium 1.8 mg/dL (1.6-2.3); Non-African American GFR(CKD) >90 (>60 ml/min/1.73 sqM); Potassium 4.2 mmol/L (3.5-5.1); Sodium 137 mmol/L (137-145)
[2019-11-16 14:33] LABS: Basophils % (A) 0 %; Eosinophils # (A) 0.1 k/uL (0-0.7); Eosinophils % (A) 1 %; HCT 29.8 % (34.0-46.0); HGB 10.3 gm/dL (11.4-16.0); Lymphocytes # (A) 1.4 k/uL (1.0-4.8); Lymphocytes % (A) 13 %; MCH 31.2 pg (25.0-35.0); MCHC 34.6 g/dL (31.0-37.0); MCV 90.1 fL (80.0-100.0); Mean Platelet Volume 8.3; Monocytes # (A) 0.5 k/uL (0-1.0); Monocytes % (A) 5 %; Neutrophils # (A) 9.2 k/uL (1.3-7.7); Neutrophils % (A) 81 %; Platelet Count 216 k/uL (150-450); RBC 3.31 m/uL (3.80-5.40); WBC 11.4 k/uL (3.8-10.6)
--- NOTE | 2019-11-16 14:51 | US ---
EXAMINATION TYPE: US OB >= 14 wk fetus, US OB TV Cervical Measurement DATE OF EXAM: 11/16/2019 COMPARISON: US 11/04/2019 CLINICAL HISTORY: pelvic cramping. Patient states she has had a stomach bug. Dehydration TECHNIQUE: Transvaginal (TV) and Transabdominal (TA) GESTATIONAL AGE / DATING Physician Established: (15 weeks/0 days) EDC: 05/09/2020 Dates by LMP: 15 weeks/0 days) EDC: 05/09/2020 Dates by First Scan: 15 weeks/0 days) EDC: 05/09/2020 Dates by Current Scan: (15 weeks/3 days) EDC: 05/06/2020 Beta HCG (if available): Not available at this time SURVEY IUP: Single PLACENTA: Anterior PREVIA: No Previa SUNITA: Too early to measure CERVICAL LENGTH (transabdominal: norm > 3.0cm): 2.4 cm CERVICAL LENGTH (transvaginal: norm> 2.5cm): 3.0 cm (Supplemental transvaginal imaging performed to verify cervical length.) BIOMETRY PRESENTATION: Breech LIE: Longitudinal BPD: 3.0 cm 15 weeks / 4 days HC: 11.0 cm 15 weeks / 2 days AC: 9.1 cm 15 weeks / 2 days FL: 1.59 cm 14 weeks / 5 days ESTIMATED WEIGHT IN GRAMS: 112.81 grams ESTIMATED WEIGHT IN LBS/OZ: 0 lbs. 4 oz. WEIGHT PERCENTAGE BASED ON ESTABLISHED DATES: 39.1% HC/AC: 1.21 Normal FL/AC: 17.47 Normal HEART RATE: 171 bpm RHYTHM: Normal Single live IUP, measurements consistent with dates. Complex area measuring 7.4 x 2.1 x 6.9 cm, possi ble subchorionic bleed. Placenta appears thickened with complex, hyperechoic area with mobile debris visualized within measuring 10.0 cm. Debris visualized within amniotic fluid. IMPRESSION: Abnormal appearing placenta with focal hypoechoic complex 7.4 cm area that may represent subchorionic hemorrhage and isoechoic 10.0 cm region noted by the fixture maker to have multiple debris on real-time examination concerning for retroplacental hemorrhage/early placental abruption. Additio nal there is debris noted within the amniotic fluid particularly on image [id number]. DIRECTOR ADULT consultati on is recommended.
[2019-11-16 15:21] VITALS: BP 110/70; PULSE 85
== END 2019-11-16 15:20 | disposition home or self-care (01) ==
LOC: EC 11:22
DX: O99.612 Diseases of the digestive system complicating pregnancy, second trimester (principal); K52.9 Noninfective gastroenteritis and colitis, unspecified; O20.9 Hemorrhage in early pregnancy, unspecified; Z3A.15 15 weeks gestation of pregnancy; Z91.030 Bee allergy status; Z87.891 Personal history of nicotine dependence
CPT/HCPCS: 99284 ×2; 96374 ×2; 96361 ×2; 36415; 80048; 83735; 85025; 81001; 76805; 76817; J2765